=== PATIENT | female | born 1985 | race African-American/Black ===

== ENCOUNTER 2022-01-11 16:28 | Outpatient (CLI) | payer OTHER, SELFPAY ==
[2022-01-11 16:55] LABS: Hematocrit 34.3 % (37.0-47.0); Hemoglobin 11.1 g/dL (12.0-15.0); Mean Corpuscular HGB Conc 32.4 g/dl (32-36); Mean Corpuscular Hemoglobin 25.2 pg (26-34); Mean Corpuscular Volume 77.8 fl (80-100); Mean Platelet Volume 10.4 fl (7.4-10.4); Platelet Count Result 193 k/mm3 (150-375); Red Blood Count 4.41 M/mm3 (4.2-5.4); Red Cell Distribution Width 13.9 % (11.5-14.5); White Blood Count 5.6 K/mm3 (4.5-10.0)
[2022-01-14 08:20] LABS: Rapid Plasma Reagin Non-Reactive (NonReactive)
== END 2022-01-11 16:29 | disposition home or self-care (01) ==
LOC: ANHLAB 16:30
PROVIDERS: PCP Internal Medicine Geriatric Medicine; Visit Provider Obstetrics & Gynecology
DX: Z01.818 Encounter for other preprocedural examination (principal)
CPT/HCPCS: 36415; 85027; 86592; 86850; 86900; 86901

== ENCOUNTER 2022-01-15 10:04 | Inpatient (IN) | payer OTHER, SELFPAY ==
--- NOTE | 2021-12-28 15:59 | PC.NURSE ---
Verified with Or schedule and patient--C/S on 01/15/22 at 1200 Patient given requisition for lab draw on 01/14/22
[2022-01-15] VITALS (44 sets, daily range): BP systolic 94–155; BP diastolic 53–127; PULSE 61–129; RESP 12–22; TEMP 36.4–36.8; O2SAT 92–100; BMI 31.0
[2022-01-15 10:57] LABS: Basophils Percent Auto 0.2 % (0.2-1.2); Eosinophils Percent Auto 0.5 % (0-4.4); Hematocrit 34.2 % (37.0-47.0); Hemoglobin 11.1 g/dL (12.0-15.0); Immature Granulocyte Absolute 0.02 K/mm3 (0.00-0.031); Immature Granulocyte Percent A 0.4 % (0-0.5); Lymphocytes Absolute Auto 1.35 K/mm3 (0.9-3.2); Lymphocytes Percent Auto 24.5 % (18.3-44.2); Mean Corpuscular HGB Conc 32.5 g/dl (32-36); Mean Corpuscular Hemoglobin 24.9 pg (26-34); Mean Corpuscular Volume 76.9 fl (80-100); Mean Platelet Volume 10.4 fl (7.4-10.4); Monocytes Absolute Auto 0.4 K/mm3 (0.1-0.6); Monocytes Percent Auto 7.4 % (2.6-8.5); Neutrophils Absolute Auto 3.7 K/mm3 (1.3-6.7); Platelet Count Result 189 k/mm3 (150-375); Red Blood Count 4.45 M/mm3 (4.2-5.4); Red Cell Distribution Width 14.1 % (11.5-14.5); White Blood Count 5.5 K/mm3 (4.5-10.0)
--- NOTE | 2022-01-15 11:27 | WPDANESEPPF ---
Anes - Initial Pre Proc Eval Procedure: Operation Date: 01/15/22 12:00 Proposed Procedures p Repeat Section - Matt Rodriguez MD Date/Time: 01/15/22 11:27 Surgeon: Matt Rodriguez MD Pre Op Diagnosis: Repeat C/S Patient Data Age: 36 Gender: F Height: 1.63 m Weight: 82 kg Last Vital Signs Pulse 90 01/15/22 11:15 BP 133/85 01/15/22 11:15 Allergies Allergy/AdvReac Type Severity Reaction Status Date / Time No Known Allergies Allergy Unverified 03/09/19 11:34 Home Medications Medication Instructions Recorded Confirmed Type Gummy 1 gummy BYMOUTH DAILY 01/15/22 01/15/22 History hydrocodone-acetaminophen 1 tablet PO BID 01/15/22 01/15/22 History Laboratory Tests 01/15/22 01/15/22 01/15/22 10:42 10:42 10:42 WBC 5.5 K/mm3 K/mm3 (4.5-10.0) RBC 4.45 M/mm3 M/mm3 (4.2-5.4) Hgb 11.1 g/dL L g/dL (12.0-15.0) Hct 34.2 % L % (37.0-47.0) MCV 76.9 fl L fl (80-100) MCH 24.9 pg L pg (26-34) MCHC 32.5 g/dl g/dl (32-36) RDW 14.1 % % (11.5-14.5) Plt Count 189 k/mm3 k/mm3 (150-375) MPV 10.4 fl fl (7.4-10.4) Immature Gran % (Auto) 0.4 % % (0-0.5) Neut % (Auto) 67.0 % % (45.5-73.1) Lymph % (Auto) 24.5 % % (18.3-44.2) [place] % (Auto) 7.4 % % (2.6-8.5) Eos % (Auto) 0.5 % % (0-4.4) Baso % (Auto) 0.2 % % (0.2-1.2) Lymph # (Auto) 1.35 K/mm3 K/mm3 (0.9-3.2) [place] # (Auto) 0.4 K/mm3 K/mm3 (0.1-0.6) Eos # (Auto) 0.0 K/mm3 K/mm3 (0-0.3) Baso # (Auto) 0.0 K/mm3 K/mm3 (0.0-0.1) Abs Immat Gran (auto) 0.02 K/mm3 K/mm3 (0.00-0.031) Absolute Neuts (auto) 3.7 K/mm3 K/mm3 (1.3-6.7) Absolute Nucleated RBC 0.0 K/mm3 K/mm3 (0.0-0.012) Nucleated RBC % 0.0 % % (0.0-0.2) RPR Pending Blood Type B Positive Antibody Screen Pending Patient hx anesthesia problems: none Family hx anesthesia problems: none Results Review: All pre-operative results and documents have been reviewed as part of the pre-operative evaluation. [facility] Past Medical History Medical History (Updated 01/15/22 @ 11:27 by Juan Thomason MD) Obesity Surgical History Surgical History (Updated 01/15/22 @ 11:27 by Juan Thomason MD) History of section History of D&C Family History Family History Mother Hypertension Other Family history of allergic disorder Social History Social History Smoking status: Never smoker Second hand tobacco smoke exposure: No Alcohol intake: current Substance use: never Spiritual care concerns: No Anes - Eval Final PreProcedure Day of Procedure 01/15/22 11:27 Patient weight: obese Heart: regular rate and rhythm Lungs: clear to auscultation Airway: Mallampati scale class II Neurological: alert and oriented Last oral intake: >/= 8 hours ASA classification: II Emergent: no Anesthetic plan: proceed Anesthesia type and monitoring: regional spinal and standard monitoring Results Review: All pre-operative results and documents have been reviewed as part of the pre-operative evaluation. Informed Consent: The patient's anesthetic plan and its attendant risks and benefits were discussed with the patient/family/POA. Questions were solicited and answers provided to the satisfaction of the patient/family/POA.
[2022-01-15] MEDS: LACTATED RINGERS 1,000 ML 125 ML IV CONT (11:48)
--- NOTE | 2022-01-15 12:10 | PM.IMHP ---
H&P: HPI History of Present Illness Date/Time: 01/15/22 12:10 36 y/o at 39 weeks here for repeat delivery. GBS neg. Chief Complaint: Here for c section. Review of Systems Review of Systems: All systems reviewed & are unremarkable except as noted in HPI and below PMFSH Past Medical History Medical History Obesity Surgical History Surgical History (Updated 01/15/22 @ 12:13 by Matt Rodriguez MD) History of section History of D&C Family History Family History Mother Hypertension Other Family history of allergic disorder Social History Social History Smoking status: Never smoker Second hand tobacco smoke exposure: No Alcohol intake: current Substance use: never Spiritual care concerns: No Meds Home Medications and Allergies Home Medications Medication Instructions Recorded Confirmed Type Gummy 1 gummy BYMOUTH DAILY 01/15/22 01/15/22 History hydrocodone-acetaminophen 1 tablet PO BID 01/15/22 01/15/22 History Allergies Allergy/AdvReac Type Severity Reaction Status Date / Time No Known Allergies Allergy Unverified 03/09/19 11:34 Vital Signs Vital Signs - 24 hr 01/15/22 11:03 01/15/22 11:15 Pulse Rate 94 90 Blood Pressure 125/88 133/85 Exam Const: Orientation/consciousness: patient oriented x3 Other: Well-developed, well-nourished female in no acute distress. Neck: Thyroid: thyroid normal Lymphatic: no lymphadenopathy noted (in neck, axilla or inguinal nodes) Resp: Effort & Inspection: normal respiratory effort Auscultation: clear to auscultation bilaterally Cardio: Rate: regular rate Rhythm: regular rhythm Heart sounds: S1 normal heart sound present and S2 normal heart sound present GI: Other: ABD: Soft, nontender, gravid. FH 38 cm. FHR 150bpm. No guarding or rebound tenderness. No hepatosplenomegaly. : General: Yes no CVA tenderness Other: Cervix closed / 50 in office. Back/Spine/Pelvis: Back: no CVA tenderness Skin: General skin exam: normal color and no rashes or lesions noted Neuro: General: patient oriented x3 Extrem: Other: Extremities: nontender with no edema Psych: Mental Status: mental status grossly normal Affect: normal affect H&P: Results Labs Labs: Short CBC 01/15/22 Range/Units 10:42 WBC 5.5 (4.5-10.0) K/mm3 Hgb 11.1 L (12.0-15.0) g/dL Hct 34.2 L (37.0-47.0) % Plt Count 189 (150-375) k/mm3 Assessment and Plan Assessment and plan (1) History of section: Code(s): Z98.891 - History of uterine scar from previous surgery Status: Inactive Assessment and Plan: A: IUP at 39 weeks with prior . P: Desires repeat . She understands risks of surgery to include risks of anesthesia, risks of pain, infection, bleeding, blood products, thromboembolic phenomena and damage to adjacent structures such as bowel, bladder, ureters, blood vessels and nerves. She understands all these risks and elects to proceed with surgery.
--- NOTE | 2022-01-15 12:14 | WPDHPUPDATE1 ---
History and Physical Update Update Date/Time: 01/15/22 12:14 History and Physical has been reviewed, including an updated exam of the patient. There are NO changes in the patient's condition. Risks, benefits, and alternatives have been discussed and questions answered. Patient agrees to proceed with procedure.
[2022-01-15] MEDS: diphenhydrAMINE HCl INJ 50 MG/ML VIAL 25 MG IV PUSH (12:15)
[2022-01-15 12:50] LABS: HIV 1/2 Ab P24 Ag Result Negative (Negative)
[2022-01-15] MEDS: KETOROLAC 30 MG/ML VIAL (*BKC) IV PUSH (12:50)
--- NOTE | 2022-01-15 13:19 | PM.OBPRVD ---
OB - Delivery Note Procedure Delivery date: 01/15/22 Procedure: Procedures Operation Date: 01/15/22 12:00 <No data on this case meets the specified criteria> Repeat low transverse delivery Delivery monitor: External FHT and External Uterine Route of delivery: Specimen: Yes (cord blood) Quantitative Blood Loss (ml): 425 Anesthesia type: Spinal Disposition: PACU Complications: None Narrative: The patient was taken to the operating room where she was prepared and draped in the usual sterile fashion in dorsal supine position with a leftward tilt. She received cefazolin preoperatively. Spinal anesthesia was found to be adequate. A Pfannenstiel skin incision was made along the previous scar line and was carried through to the underlying layer of the fascia. The fascia was incised in the midline and the incision was extended laterally. The fascia was dissected free of the underlying rectus muscles. The rectus muscles were in the midline. The peritoneum was identified, tented up and entered sharply. The peritoneal incision was extended superiorly and inferiorly with good visualization of the bladder. The bladder blade was placed. The vesicouterine peritoneum was identified, tented up and entered sharply. The incision was extended laterally and the bladder flap was developed. The bladder blade was replaced. The uterus was then incised sharply in a transverse fashion along the lower uterine segment. The incision was extended laterally. The infant's head was delivered atraumatically to the sterile field, followed by the body. The nose and mouth were bulb suctioned. After a delay, the cord was clamped and cut. The was handed off the field. Cord blood was collected. The placenta was removed manually and was passed off the field. The uterus was exteriorized and cleared of all clots and debris. The uterine incision was reapproximated using 0 Monocryl in a running, locked fashion. Excellent hemostasis resulted as did excellent reapproximation of the normal anatomy. The uterus was returned the abdomen. The pelvis was irrigated copiously with warmed normal saline. Rigorous hemostasis was assured. The fascial layer was reapproximated using 0 Vicryl in a running fashion. The skin was closed with a running, subcuticular stitch of 4 0 Vicryl. Dermaflex was applied externally. Sponge, lap, needle and instrument counts were correct. The patient was taken to the recovery room in stable condition. The infant went to the nursery in stable condition. I was present and scrubbed the entire procedure. [place] Baby Date of : 01/15/22 Time of : 12:47 Weeks of gestation at delivery: 39 Infant gender: Male Weight (pounds): 6 Weight (ounces): 12 presentation: vertex Placenta delivery description: Manual Removal and Normal Configuration Cord Vessel Description: 3 Vessels and Around Body score one minute: 8 score five minutes: 9
--- NOTE | 2022-01-15 13:21 | PM.OBDSVD ---
DS: Admitting Diagnosis Discharge Date 01/17/22 Admitting Diagnosis IUP at 39 weeks Prior , desires repeat DS: Discharge Diagnosis Discharge Diagnosis (1) History of section: Code(s): Z98.891 - History of uterine scar from previous surgery Status: Acute OB - DS: Summary OB Procedures : None OB Procedures Intrapartum: OB Procedures: : None Peripartum Data Procedures: Procedures Operation Date: 01/15/22 12:00 <No data on this case meets the specified criteria> Repeat LTCS DS: Data Data Completed and Pending Labs on day of discharge: Labs from last 24 hours 01/15/22 01/15/22 01/15/22 11:51 10:42 10:42 WBC RBC Hgb Hct MCV MCH MCHC RDW Plt Count MPV Immature Gran % (Auto) Neut % (Auto) Lymph % (Auto) [place] % (Auto) Eos % (Auto) Baso % (Auto) Lymph # (Auto) [place] # (Auto) Eos # (Auto) Baso # (Auto) Abs Immat Gran (auto) Absolute Neuts (auto) Absolute Nucleated RBC Nucleated RBC % RPR Pending HIV 1&2 Ab/P24 Ag 4thGn Negative Blood Type B Positive Antibody Screen Negative 01/15/22 10:42 WBC 5.5 RBC 4.45 Hgb 11.1 L Hct 34.2 L MCV 76.9 L MCH 24.9 L MCHC 32.5 RDW 14.1 Plt Count 189 MPV 10.4 Immature Gran % (Auto) 0.4 Neut % (Auto) 67.0 Lymph % (Auto) 24.5 [place] % (Auto) 7.4 Eos % (Auto) 0.5 Baso % (Auto) 0.2 Lymph # (Auto) 1.35 [place] # (Auto) 0.4 Eos # (Auto) 0.0 Baso # (Auto) 0.0 Abs Immat Gran (auto) 0.02 Absolute Neuts (auto) 3.7 Absolute Nucleated RBC 0.0 Nucleated RBC % 0.0 RPR HIV 1&2 Ab/P24 Ag 4thGn Blood Type Antibody Screen Discharge Plan Discharge Attending physician on discharge: Matt Rodriguez Discharging Clinician: Matt Rodriguez Patient Disposition: Home, Self-Care Activity: may shower, may drive after 2 weeks and pelvic rest Diet: regular Wound Care Instructions: incision open to air Discharge Instructions: Call or return if temperature above 100.4? F, increased abdominal pain, increased vaginal bleeding or any new problems. Stand Alone Forms: General Discharge Information Follow-up/Referrals: Matt Rodriguez MD [Physician] - 4 Weeks Discharge Medications: New ferrous sulfate 325 mg (65 mg iron) tablet 325 mg PO DAILY Qty: 30 RF: 0 ibuprofen 600 mg tablet 600 mg PO Q6H PRN (Reason: cramps) Qty: 30 RF: 0 oxycodone-acetaminophen [Percocet] 5-325 mg tablet 1 - 2 tablet PO Q6H PRN (Reason: pain) Qty: 30 RF: 0 Continued Gummy 1 gummy BYMOUTH DAILY RF: 0 Discontinued hydrocodone-acetaminophen 10-325 mg tablet 1 tablet PO BID RF: 0 Date of admission: 01/15/22 10:04 Primary Care Provider: Aparna,Juventino Russo Admitting Provider: Matt Rodriguez Attending physician on admission: Matt Rodriguez Condition: Stable
[2022-01-15] MEDS: fentaNYL CITRATE INJ (*CRX) 100 MCG/2 ML VIAL 25 MCG IV PUSH ×4 (13:54→15:06)
[2022-01-15] MEDS: OXYTOCIN 30 UNITS/NS 500 ML 30 UNITS/500 ML BAG 125 UNITS IV CONT (15:11)
[2022-01-15 16:17] LABS: Barbiturate Screen Urine Negative (Negative); Benzodiazepines Screen Urine Positive (Negative)
[2022-01-15 16:21] LABS: Amphetamine Screen Urine Negative (Negative); Cocaine Screen Urine Negative (Negative); Methadone Screen Urine Negative (Negative); Opiate Screen Urine Positive (Negative); Phencyclidine Screen Urine Negative (Negative)
[2022-01-15 16:31] LABS: Cannabinoid Screen Urine Negative (Negative)
[2022-01-15] MEDS: oxyCODONE/ACETAMINOPHEN (*CRX) 5-325 MG TABLET 2 TABLET PO ×2 (16:52→20:54)
[2022-01-15] MEDS: SIMETHICONE 80 MG TAB.CHEW PO (16:52)
[2022-01-15] MEDS: DOCUSATE SODIUM 100 MG CAPSULE PO (16:53)
[2022-01-15] MEDS: DEXTROSE 5%/0.45% SOD CHL 1,000 ML 125 ML IV CONT (19:51)
[2022-01-15] MEDS: IBUPROFEN 600 MG TABLET PO (20:54)
[2022-01-16] VITALS (7 sets, daily range): BP systolic 97–129; BP diastolic 63–83; PULSE 74–94; RESP 16–18; TEMP 36.1–36.7; O2SAT 99–100
[2022-01-16] MEDS: oxyCODONE/ACETAMINOPHEN (*CRX) 5-325 MG TABLET 2 TABLET PO ×6 (00:34→21:43)
[2022-01-16] MEDS: IBUPROFEN 600 MG TABLET PO ×3 (04:21→19:48)
[2022-01-16 04:53] LABS: Basophils Percent Auto 0.3 % (0.2-1.2); Eosinophils Absolute Auto 0.1 K/mm3 (0-0.3); Eosinophils Percent Auto 1.1 % (0-4.4); Hematocrit 27.9 % (37.0-47.0); Hemoglobin 9.3 g/dL (12.0-15.0); Immature Granulocyte Absolute 0.04 K/mm3 (0.00-0.031); Immature Granulocyte Percent A 0.5 % (0-0.5); Lymphocytes Absolute Auto 1.19 K/mm3 (0.9-3.2); Lymphocytes Percent Auto 15.7 % (18.3-44.2); Mean Corpuscular HGB Conc 33.3 g/dl (32-36); Mean Corpuscular Hemoglobin 25.3 pg (26-34); Mean Platelet Volume 10.7 fl (7.4-10.4); Monocytes Absolute Auto 0.5 K/mm3 (0.1-0.6); Monocytes Percent Auto 6.2 % (2.6-8.5); Neutrophils Absolute Auto 5.8 K/mm3 (1.3-6.7); Neutrophils Percent Auto 76.2 % (45.5-73.1); Platelet Count Result 149 k/mm3 (150-375); Red Blood Count 3.67 M/mm3 (4.2-5.4); Red Cell Distribution Width 13.9 % (11.5-14.5); White Blood Count 7.6 K/mm3 (4.5-10.0)
[2022-01-16 07:03] LABS: Rapid Plasma Reagin Non-Reactive (NonReactive)
--- NOTE | 2022-01-16 09:00 | P.PNOB_ITS ---
OB - PN: Subj Subjective Date/time seen: 01/16/22 0900 Narrative: Pain OK. Tolerating diet. Would like circumcision for son. OB - PN: Obj Data Labs CBC & Chem 7: 01/16/22 04:07 Labs: Laboratory Results - last 24 hr 01/15/22 01/15/22 01/15/22 10:42 11:51 15:49 WBC RBC Hgb Hct MCV MCH MCHC RDW Plt Count MPV Immature Gran % (Auto) Neut % (Auto) Lymph % (Auto) [place] % (Auto) Eos % (Auto) Baso % (Auto) Lymph # (Auto) [place] # (Auto) Eos # (Auto) Baso # (Auto) Abs Immat Gran (auto) Absolute Neuts (auto) Absolute Nucleated RBC Nucleated RBC % Urine Opiates Screen Positive A Urine Methadone Screen Negative Ur Barbiturates Screen Negative Ur Phencyclidine Scrn Negative Ur Amphetamine Screen Negative U Benzodiazepines Scrn Positive A Urine Cocaine Screen Negative U Cannabinoids Screen Negative RPR Non-reactive HIV 1&2 Ab/P24 Ag 4thGn Negative 01/16/22 04:07 WBC 7.6 RBC 3.67 L Hgb 9.3 L Hct 27.9 L MCV 76.0 L MCH 25.3 L MCHC 33.3 RDW 13.9 Plt Count 149 L MPV 10.7 H Immature Gran % (Auto) 0.5 Neut % (Auto) 76.2 H Lymph % (Auto) 15.7 L [place] % (Auto) 6.2 Eos % (Auto) 1.1 Baso % (Auto) 0.3 Lymph # (Auto) 1.19 [place] # (Auto) 0.5 Eos # (Auto) 0.1 Baso # (Auto) 0.0 Abs Immat Gran (auto) 0.04 H Absolute Neuts (auto) 5.8 Absolute Nucleated RBC 0.0 Nucleated RBC % 0.0 Urine Opiates Screen Urine Methadone Screen Ur Barbiturates Screen Ur Phencyclidine Scrn Ur Amphetamine Screen U Benzodiazepines Scrn Urine Cocaine Screen U Cannabinoids Screen RPR HIV 1&2 Ab/P24 Ag 4thGn OB - PN A/P Plan Comments: A: POD#1, doing well. P: Routine care. Reviewed circumcision. Reviewed UDS and discussed future pain management plan. Exam Narrative: AVSS I/O OK ABD soft, nontender, fundus firm. Incision c/d/i. EXT nontender
[2022-01-16] MEDS: POLYSACCHARIDE IRON COMPLEX 150 MG CAPSULE PO ×2 (09:40→16:53)
[2022-01-16] MEDS: DOCUSATE SODIUM 100 MG CAPSULE PO ×2 (09:40→16:53)
--- NOTE | 2022-01-16 10:23 | WPDANLDPN2 ---
Anes-Prog Note L&D Date/Time: 01/16/22 10:23 Comfortable throughout: section Neuraxial method: spinal Epidural/Spinal procedure site: clean & non-tender Neuro status: Neuro function grossly intact. Cardiovascular status: normal Respiratory status: normal Airway patency: baseline Mental status: baseline Post-Op hydration status: normal Vital Signs: Last Vital Signs Temp 97.4 F L 01/16/22 07:50 Pulse 82 01/16/22 07:50 Resp 18 01/16/22 07:50 BP 110/63 01/16/22 07:50 Pulse Ox 100 01/16/22 07:50 Pain score (VAS): 0 I/O: Intake & Output 01/15/22 01/16/22 01/16/22 23:59 07:59 15:59 Intake Total 500 720 Output Total 666 1250 Balance -166 -530 Post-procedural complaints: none Patient feedback: Patient satisfied with anesthetic care.
--- NOTE | 2022-01-16 10:24 | WPDANLDNPN2 ---
Anes-Prog Note L&D-Neuraxial Date/Time: 01/16/22 10:24 Neuraxial medications: intrathecal PF morphine Opiod-related complaints: none Patient feedback: Patient satisfied with post-operative pain management.
--- NOTE | 2022-01-16 15:44 | PCCCNOTE ---
Addendum entered by Ny Espinoza 01/17/22 13:45: 01/17/2022 1330: CC spoke with Dr. Rodriguez who confirms that pt.'s primary doctor had prescribed the opiates for pt. and that his office was in agreement with the continuation of the medication since pt. had been on it for so long. Dr. Rodriguez's office was not able to find the origin of the Xanax prescription. Pt. states it is a very old prescription that would still be on record at [facility]. CC informed pt. and FOB that the drug use has been reported to [place] [facility]. CC completed report with Candi Padilla, intake ID [id number]. Candi states pt. and baby will be seen within 24 hours. Candi unable to states that baby would be safe to D/C home. Baby will stay at [facility] until seen by DCFS. Pt. and FOB very upset about report and they state that they will not stay another night since they do not have child and family therapist set up for their 5 year old daughter. CC has informed RN. Original Note: Met with pt. this morning to discuss discharge planning. Pt's current D/C plan is to return home with her , daughter, and baby. Pt. has everything needed to bring baby home safely. Pt. will bottle feed baby at time of discharge and will follow up with Dr. Ayala for pediatric primary care. Pt. has no questions or concerns about bringing baby home. Pt. did test positive for opiates and benzos. Pt. states the opiates are from her primary doctor (Dr. Rodriguez) following a hernia repair from 2013. Dr. Rodriguez's office confirms the above information. Pt. 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 Rodriguez's office. CC spoke with 's RN and she states that prescription is not in pt.'s chart but she will follow-up with Dr. Rodriguez to know for sure. CC will have to reach out to [place] [facility] for drug use if pt. does not have a prescription for Xanax. Will follow.
[2022-01-17] MEDS: IBUPROFEN 600 MG TABLET PO ×2 (02:43→09:37)
[2022-01-17] MEDS: oxyCODONE/ACETAMINOPHEN (*CRX) 5-325 MG TABLET 2 TABLET PO ×2 (02:43→09:37)
[2022-01-17 08:00] VITALS: BP 132/84; PULSE 84; RESP 16; TEMP 36.9; O2SAT 100
--- NOTE | 2022-01-17 09:00 | PM.OBPNVD ---
OB - PN: Subj Subjective Date/time seen: 01/17/22 09:00 Narrative: Pain OK. Tolerating diet. Would like to go home. OB - PN: Obj Data Labs CBC & Chem 7: 01/16/22 04:07 OB - PN A/P Plan Comments: A: POD#2, doing well. P: Home to f/u 4 weeks. Exam Narrative: AVSS ABD soft, nontender, fundus firm. Incision c/d/i. EXT nontender
[2022-01-17] MEDS: DOCUSATE SODIUM 100 MG CAPSULE PO (09:38)
[2022-01-17] MEDS: POLYSACCHARIDE IRON COMPLEX 150 MG CAPSULE PO (09:38)
--- NOTE | 2022-01-17 15:28 | PC.NURSE ---
1525-DCFS welfare investigator gave patient permission to go to [facility] to obtain a list of all of her prescriptions; [facility] unaware.
--- NOTE | 2022-01-17 16:17 | PC.NURSE ---
1540-DCFS narcotics investigator called patient back from going to [facility]. RN let narcotics investigator know that patient cannot leave the facility as she has not been discharged.
== END 2022-01-17 16:00 | disposition home or self-care (01) | DRG 788 ==
LOC: ANHLDR 13:23 → ANHOB2 16:14
PROVIDERS: Admitting Provider Obstetrics & Gynecology; PCP Internal Medicine Geriatric Medicine; Visit Provider Obstetrics & Gynecology
PROC: 10D00Z1 Extraction of Products of Conception, Low, Open Approach (ICD-10-PCS; CPT 59514; principal; 2022-01-15 12:00)
DX: O34.211 Maternal care for low transverse scar from previous cesarean delivery (principal); Z37.0 Single live birth; Z3A.39 39 weeks gestation of pregnancy; O69.82X0 Labor and delivery complicated by other cord entanglement, without compression, not applicable or unspecified
CPT/HCPCS: 36415; 80307; 85025; 86592; 86703; 86850; 86900; 86901; A9270; G0432; J0131; J1200; J1885; J2274; J2405; J2590; J3010; J7120

== ENCOUNTER → 2023-07-24 10:30 | Outpatient (CLI) | payer OTHER, SELFPAY ==
--- NOTE | ~2023-07-24 | CT_ITS ---
CT of the Abdomen and Pelvis: Indication: Abdominal pain Technique: 2.5 mm axial scans were obtained through the abdomen and pelvis following intravenous adm inistration of 100 cc of Omnipaque 350. Dose reduction technique was used on this scan by utilizing a utomated exposure control and iterative reconstruction technique. The dose-length product (DLP) was 5 73.03 mGy-cm. Findings: Scans through the lung bases are unremarkable. The liver, spleen, pancreas, adrenals and kidneys are within normal limits. Cholecystectomy clips are present. No evidence of aortic aneurysm. No lymphadenopathy. No bowel obstruction or bowel wall thickening. There is no evidence to suggest acute appendicitis. Images through the pelvis were performed. Urinary bladder unremarkable. Probable 2 cm left adnexal [address] present. No other adnexal mass seen. No ascites. Impression: 2 cm left adnexal cyst, otherwise unremarkable exam. Reviewed, dictated and finalized at [facility]. [employer]GE [employer] Impression: 2 cm left adnexal cyst, otherwise unremarkable exam.
== END ==
PROVIDERS: PCP Emergency Medicine; Visit Provider Emergency Medicine
DX: R10.84 Generalized abdominal pain (principal); N83.202 Unspecified ovarian cyst, left side
CPT/HCPCS: 74177; Q9967